=== PATIENT | female | born 1960 | race African-American/Black ===

== ENCOUNTER 2019-04-26 07:44 | Day surgery (SDC) | payer OTHER ==
[2019-04-25 14:28] VITALS: BMI 29.7
[2019-04-26 08:28] LABS: URINE APPEARANCE CLEAR; URINE BILIRUBIN NEGATIVE (NEGATIVE); URINE COLOR YELLOW; URINE GLUCOSE (UA) NEGATIVE (NEGATIVE); URINE KETONE NEGATIVE (NEGATIVE); URINE LEUK ESTERASE NEGATIVE (NEGATIVE); URINE NITRITE NEGATIVE (NEGATIVE); URINE PROTEIN NEGATIVE (NEGATIVE); URINE UROBILINOGEN 0.2 mg/dL (0.2-1.0)
[2019-04-26] MEDS ORDERED: MIDAZOLAM HCL 2 MG/2 ML SINGLE DOSE VIAL ONE (09:06)
[2019-04-26] MEDS ORDERED: PROPOFOL 20 ML ONE (09:06)
[2019-04-26] MEDS ORDERED: LIDOCAINE HCL 1% EPINEPHRINE 1:200,000 30 ML VIAL (PF) ONE (09:27)
[2019-04-26] MEDS ORDERED: BUPIVACAINE HCL/PF 0.5% (5 MG/ML) 30 ML VIAL IJ ONE (09:27)
--- NOTE | 2019-04-26 09:38 | HP ---
Satellite [facility] - Chief Complaint Chief Complaint: right knee pain - Past Medical History Allergies/Adverse Reactions: Allergies Allergy/AdvReac Type Severity Reaction Status Date / Time No Known Allergies Allergy Verified 04/26/19 09:03 - Current Medications Current Medications: Home Medications Medication Instructions Recorded Hydralazine HCl 10 mg PO ASDIR 11/24/17 Losartan/Hydrochlorothiazide 1 each PO ASDIR 11/24/17 [Losartan-Hctz 100-12.5 mg Tab] Ascorbic Acid [Vitamin C] 1,000 mg PO DAILY 04/25/19 Cholecalciferol (Vitamin D3) 50 unit PO DAILY 04/25/19 [Vitamin D3 -] Cyanocobalamin [Vitamin B12 -] 1,000 mcg PO DAILY 04/25/19 Terbinafine HCl 250 mg PO DAILY 04/25/19 Satellite Physical Exam - Physical Examination Vital Signs: Vital Signs Period Temp Pulse Resp BP Sys/Avina Pulse Ox Last 24 Hr 98.4 F 64 18 116/63 100 General Appearance: Well Nourished, Well Developed, Alert & Oriented x3 ENT: Clear Lung: Normal air movement Extremities: Other (right knee- + Swelling, + ttp ,decr rom, nvi) Neurological: Intact, Alert, Oriented Satellite Impression/Plan - Impression/Plan Impression: right knee internal derangement Operative Procedure: right knee arthroscopy Date to be Performed: 04/26/19
[2019-04-26] MEDS ORDERED: LIDOCAINE HCL/PF 2% SDV 5ML VIAL ONE (10:00)
[2019-04-26] MEDS ORDERED: DEXAMETHASONE SOD PHOSPHATE 4 MG/1 ML VIAL ONE (10:00)
[2019-04-26] MEDS ORDERED: ceFAZolin SODIUM 1 GM VIAL ONE (10:09)
[2019-04-26] MEDS ORDERED: KETOROLAC TROMETHAMINE 30 MG/1 ML VIAL ONE (10:29)
[2019-04-26] MEDS ORDERED: ONDANSETRON 4 MG/2 ML VIAL IVPUSH PRN (10:35)
[2019-04-26] MEDS ORDERED: oxyCODONE HCL 5 MG TABLET PO PRN ×2 (10:35)
[2019-04-26] MEDS ORDERED: LACTATED RINGERS SOLUTION 1,000 ML IV SCH (10:45)
--- NOTE | 2019-04-26 10:53 | OP ---
Operative Note - Note: Operative Date: 04/26/19 ([facility]) Pre-Operative Diagnosis: right knee internal derangement Operation: right knee arthroscopy with removal loose bodies, debridement chondroplasty trochlea Post-Operative Diagnosis: Same as Pre-op Surgeon: Stu Oleary Anesthesia: General, Local Specimens Removed: shavings Estimated Blood Loss (mls): 5
[2019-04-26 12:11] VITALS: TEMP 97.8
[2019-04-26 14:12] VITALS: BP 138/70; PULSE 72
--- NOTE | 2019-04-27 09:29 | OP ---
DATE OF OPERATION: 04/26/2019 PREOPERATIVE DIAGNOSIS: Internal derangement, right knee. POSTOPERATIVE DIAGNOSIS: Internal derangement, right knee. PROCEDURE: Arthroscopy, right knee with excision of loose bodies and chondroplasty of the trochlea. SURGICAL ATTENDING: Sut Oleary MD ANESTHESIA: LMA. CLOSURE: A 4-0 nylon. COMPLICATIONS: None. CONDITION: Recovery in stable condition. DESCRIPTION OF OPERATIVE PROCEDURE: Patient taken to the operating room on April 26, 2019. General anesthesia with LMA was administrated by the anesthesiologist. Right lower extremity was prepped and draped in the usual sterile fashion. The medial and lateral infrapatellar portal sites were infiltrated with 1% Xylocaine with epinephrine. Both portals were then made followed by a blunt trocar. The scope was placed in the lateral infrapatellar portal and up into the patellar pouch. The pouch was inflated with a cocktail of 10 mL of 1% Xylocaine, 10 mL of 0.5% Marcaine, and 20 mL of arthroscopic saline. After allowing the anesthetic to work in the knee, the procedure was performed. The pouch was visualized to be clean. The medial and lateral gutters were visualized to be clean. With valgus stress on the knee, the medial compartment was entered. The [id number] compartment, there were multiple loose bodies that were interfering with the compartment. They were debrided using a straight clamp and a shaver. The medial femoral condyle was run and found to be intact as was the medial tibial plateau. The medial meniscus was visualized and probed, found to be intact. At 90 degrees, the ACL and PCL were visualized, exposed, and found to be intact. There were multiple lose bodies again anteriorly in the notch and anteriorly, that were debrided with the shaver. In the figure-four position, lateral compartment was entered. Lateral meniscus visualized; both found to be intact. The lateral femoral condyle was run and found to be intact as was the lateral tibial plateau. The trochlea was run and found to have some grade 2-3 changes. Any loose cartilage was debrided using a shaver. The undersurface of the patella was found to be intact. The knee was irrigated with copious amounts of irrigation. The portals were closed using 4-0 nylon. Prior to closure, 20 mL of 0.5% Marcaine were infused through the outflow trocar after the fluid was drained, for postoperative analgesia. A sterile pressure dressing was placed over the knee. Patient was awakened from anesthesia and transferred to recovery in stable condition. No complications. Estimated blood loss negligible. Tami GREGORY/[id number]
--- NOTE | 2019-04-28 14:24 | PATH ---
Surgical Pathology Report Patient Name: [facility]YNA [facility]. Rec. #: [id number] /Age/Gender: 1960 (Age: 58) / F Account: [id number] Location: [facility] SURGICAL Taken: 04/26/2019 Received: 04/26/2019 Reported: 04/28/2019 Physicians: Stu Oleary M.D. Specimen(s) Received RIGHT KNEE SHAVINGS Clinical History Right knee internal derangement Final Diagnosis KNEE SHAVINGS, RIGHT, ARTHROSCOPY WITH REMOVAL OF LOOSE BODIES: FRAGMENTS OF CARTILAGE, DENSE FIBROCONNECTIVE TISSUE, FIBROADIPOSE TISSUE, AND REACTIVE SYNOVIUM. Electronically Signed Miranda Lawrence M.D. Gross Description Received in formalin labeled "right knee shavings," is a 2.8 x 1.6 x 0.3 cm aggregate of santana-yellow soft tissue fragments. The formalin is filtered and the specimen is entirely submitted in one cassette. 04/27/2019 [facility]04/27/2019
== END 2019-04-26 13:25 | disposition home or self-care (01) ==
LOC: JASU-SURG 07:44
PROVIDERS: ATTEND Orthopaedic Surgery
PROC: 0SBC4ZZ Excision of Right Knee Joint, Percutaneous Endoscopic Approach (ICD-10-PCS; 2019-04-26)
PROC: 0SCC4ZZ Extirpation of Matter from Right Knee Joint, Percutaneous Endoscopic Approach (ICD-10-PCS; principal; 2019-04-26 10:00)
DX: M23.41 Loose body in knee, right knee (principal)
CPT/HCPCS: 81003; 88304-TC; 94760